=== PATIENT | female | born 1970 | race Caucasian/White ===

== ENCOUNTER 2016-10-07 18:47 | Inpatient (IN) | payer SELFPAY ==
[2016-10-07] MEDS: HEPARIN 5,000 UNITS/ML, 1ML SQ SCH ×2 (08:15→23:55)
[~2016-10-07 18:47] MED LIST: HYDR200T PO; METF500T4 PO; OMEP-110 PO; PRED5TAB25 PO
[2016-10-07] MEDS ORDERED: ACETAMINOPHEN 500 MG TABLET ONE (19:30)
[2016-10-07] MEDS ORDERED: ONDANSETRON 2MG/ML, 2ML ONE (19:30)
[2016-10-07] MEDS ORDERED: HYDROmorphone 1 MG/ML, 1ML ONE ×3 (19:30→23:34)
[2016-10-07] MEDS ORDERED: CEFTRIAXONE PMX 1GM/50ML 50 ML ONE (20:39)
[2016-10-07] MEDS ORDERED: METRONIDAZOLE PMX 500MG/100ML 100 ML ONE (21:10)
[2016-10-07] MEDS ORDERED: SODIUM CHLORIDE 0.9% 1,000 ML IV SCH (22:00)
[2016-10-07] MEDS ORDERED: ACETAMINOPHEN 325 MG TABLET PO PRN (22:00)
[2016-10-07] MEDS ORDERED: CEFTRIAXONE 2 GM in SODIUM CHLORIDE 0.9% 50 ML IVPB SCH (23:00)
[2016-10-07] MEDS ORDERED: MORPHINE SULFATE 4 MG/ML, 1ML ONE (23:16)
[2016-10-07] MEDS ORDERED: HEPARIN 5,000 UNITS/ML, 1ML ONE (23:22)
[2016-10-08 02:50] VITALS: BP 92/63
[2016-10-08] MEDS ORDERED: HYDROmorphone 1 MG/ML, 1ML ONE ×5 (04:05→21:07)
[2016-10-08] MEDS: METRONIDAZOLE PMX 500MG/100ML 100 ML IVPB SCH ×3 (06:00→22:22)
[2016-10-08 07:00] VITALS: BP 126/88
[2016-10-08] MEDS: INSULIN ASPART 100 UNIT/ML SQ-INSULIN SCH ×4 (07:00→21:00)
[2016-10-08] MEDS ORDERED: ONDANSETRON 2MG/ML, 2ML ONE ×2 (07:10→13:10)
[2016-10-08] MEDS: OMEPRAZOLE 20 MG CAPSULE.DR PO SCH (07:30)
[2016-10-08] MEDS: FOLIC ACID 1 MG TABLET PO SCH (09:00)
[2016-10-08] MEDS ORDERED: PROCHLORPERAZINE 5 MG/ML, 2ML IM PRN (16:00)
[2016-10-08] MEDS: HEPARIN 5,000 UNITS/ML, 1ML SQ SCH ×2 (16:00→22:23)
[2016-10-08] MEDS: D5%-0.9% NACL 1,000 ML IV SCH (17:00)
[2016-10-08] MEDS: ONDANSETRON 2MG/ML, 2ML IV PRN (19:26)
[2016-10-08 20:17] VITALS: BP 127/82
[2016-10-08] MEDS ORDERED: HYDROmorphone 2 MG/ML, 1ML IVPush PRN (21:30)
[2016-10-08] MEDS: CEFTRIAXONE PMX 2GM/50ML 50 ML IVPB SCH (23:28)
[2016-10-09] MEDS: D5%-0.9% NACL 1,000 ML IV SCH ×2 (02:57→15:45)
[2016-10-09 03:51] VITALS: BP 124/84
[2016-10-09] MEDS: ONDANSETRON 2MG/ML, 2ML IV PRN ×3 (04:01→23:58)
[2016-10-09] MEDS: HYDROmorphone 1 MG/ML, 1ML IVPush PRN ×5 (04:02→23:58)
[2016-10-09 05:38] LABS: ASPARTATE AMINO TRANSFERASE 17 U/L (15-37); BLOOD UREA NITROGEN 4 mg/dL (7-18)
[2016-10-09] MEDS: METRONIDAZOLE PMX 500MG/100ML 100 ML IVPB SCH ×3 (06:02→23:48)
[2016-10-09] MEDS: HEPARIN 5,000 UNITS/ML, 1ML SQ SCH ×3 (06:02→23:49)
[2016-10-09 07:26] VITALS: BP 126/86
[2016-10-09] MEDS: FOLIC ACID 1 MG TABLET PO SCH (08:06)
[2016-10-09] MEDS: OMEPRAZOLE 20 MG CAPSULE.DR PO SCH (08:06)
[2016-10-09] MEDS: INSULIN ASPART 100 UNIT/ML SQ-INSULIN SCH ×4 (08:06→20:08)
[2016-10-09 12:55] VITALS: BP 128/85
[2016-10-09 13:31] LABS: ASPARTATE AMINO TRANSFERASE 27 U/L (15-37); BLOOD UREA NITROGEN 9 mg/dL (7-18)
[2016-10-09] MEDS: SODIUM CHLORIDE 0.9% 1,000 ML IV SCH (17:23)
[2016-10-09 19:53] VITALS: BP 123/86
[2016-10-10] MEDS: CEFTRIAXONE PMX 2GM/50ML 50 ML IVPB SCH ×2 (01:57→23:31)
[2016-10-10 02:59] VITALS: BP 118/79
[2016-10-10] MEDS: SODIUM CHLORIDE 0.9% 1,000 ML IV SCH ×2 (05:35→13:10)
[2016-10-10] MEDS: HYDROmorphone 1 MG/ML, 1ML IVPush PRN ×5 (05:35→23:31)
[2016-10-10] MEDS: ONDANSETRON 2MG/ML, 2ML IV PRN ×3 (05:44→18:15)
[2016-10-10] MEDS: HEPARIN 5,000 UNITS/ML, 1ML SQ SCH ×3 (05:45→23:31)
[2016-10-10 06:31] LABS: BLOOD UREA NITROGEN 5 mg/dL (7-18)
[2016-10-10] MEDS: INSULIN ASPART 100 UNIT/ML SQ-INSULIN SCH ×4 (07:00→21:00)
[2016-10-10 07:02] VITALS: BP 124/87
[2016-10-10] MEDS: OMEPRAZOLE 20 MG CAPSULE.DR PO SCH (08:51)
[2016-10-10] MEDS: METRONIDAZOLE PMX 500MG/100ML 100 ML IVPB SCH ×2 (08:51→15:58)
[2016-10-10] MEDS: FOLIC ACID 1 MG TABLET PO SCH (08:52)
[2016-10-10 13:26] VITALS: BP 131/83
[2016-10-10 20:29] VITALS: BP 119/83
[2016-10-11] MEDS: ONDANSETRON 2MG/ML, 2ML IV PRN ×4 (00:27→23:09)
[2016-10-11] MEDS: METRONIDAZOLE PMX 500MG/100ML 100 ML IVPB SCH ×4 (00:28→16:00)
[2016-10-11] MEDS: SODIUM CHLORIDE 0.9% 1,000 ML IV SCH ×3 (00:38→16:47)
[2016-10-11 01:17] VITALS: BP 106/73
[2016-10-11] MEDS: HYDROmorphone 1 MG/ML, 1ML IVPush PRN (05:05)
[2016-10-11 05:37] LABS: BLOOD UREA NITROGEN 6 mg/dL (7-18)
[2016-10-11] MEDS: INSULIN ASPART 100 UNIT/ML SQ-INSULIN SCH ×4 (07:00→21:00)
[2016-10-11] MEDS: OMEPRAZOLE 20 MG CAPSULE.DR PO SCH (08:23)
[2016-10-11] MEDS: HEPARIN 5,000 UNITS/ML, 1ML SQ SCH ×3 (08:23→22:33)
[2016-10-11] MEDS: FOLIC ACID 1 MG TABLET PO SCH (08:23)
[2016-10-11] MEDS: HYDROcodone/APAP 10/325 MG TABLET PO PRN ×4 (08:24→22:36)
[2016-10-11 08:25] VITALS: BP 136/88
[2016-10-11 15:30] VITALS: BP 119/81
[2016-10-11 21:06] VITALS: BP 113/78
[2016-10-11] MEDS: CEFTRIAXONE PMX 2GM/50ML 50 ML IVPB SCH (23:09)
[2016-10-12 02:59] VITALS: BP_SYST 111; BP_SYST 131; BP_DIAS 73; BP_DIAS 75
[2016-10-12] MEDS: METRONIDAZOLE PMX 500MG/100ML 100 ML IVPB SCH ×3 (03:59→20:23)
[2016-10-12 05:53] LABS: ASPARTATE AMINO TRANSFERASE 23 U/L (15-37); BLOOD UREA NITROGEN 6 mg/dL (7-18)
[2016-10-12] MEDS: HEPARIN 5,000 UNITS/ML, 1ML SQ SCH ×3 (06:18→22:47)
[2016-10-12] MEDS: SODIUM CHLORIDE 0.9% 1,000 ML IV SCH ×2 (06:18→15:03)
[2016-10-12] MEDS: INSULIN ASPART 100 UNIT/ML SQ-INSULIN SCH ×4 (06:19→21:39)
[2016-10-12] MEDS ORDERED: ERGOCALCIFEROL 50,000 UNIT CAPSULE PO SCH (08:30)
[2016-10-12 08:45] VITALS: BP 138/92
[2016-10-12] MEDS: HYDROcodone/APAP 10/325 MG TABLET PO PRN ×4 (09:31→22:47)
[2016-10-12] MEDS: FOLIC ACID 1 MG TABLET PO SCH (09:33)
[2016-10-12] MEDS: OMEPRAZOLE 20 MG CAPSULE.DR PO SCH (09:33)
[2016-10-12 13:02] VITALS: BP 123/86
[2016-10-12 13:06] LABS: HGB A1C 9.2 %Hb (.)
[2016-10-12] MEDS: ONDANSETRON 2MG/ML, 2ML IV PRN (18:38)
[2016-10-12 20:41] VITALS: BP 109/76
[2016-10-12] MEDS: CEFTRIAXONE PMX 2GM/50ML 50 ML IVPB SCH (22:47)
[2016-10-13] MEDS: SODIUM CHLORIDE 0.9% 1,000 ML IV SCH ×2 (00:26→08:00)
[2016-10-13] MEDS: ONDANSETRON 2MG/ML, 2ML IV PRN ×2 (00:27→06:41)
[2016-10-13 03:20] VITALS: BP 110/72
[2016-10-13] MEDS: METRONIDAZOLE PMX 500MG/100ML 100 ML IVPB SCH (04:06)
[2016-10-13] MEDS: HYDROcodone/APAP 10/325 MG TABLET PO PRN (04:12)
[2016-10-13 05:43] LABS: BLOOD UREA NITROGEN 4 mg/dL (7-18)
[2016-10-13] MEDS: HEPARIN 5,000 UNITS/ML, 1ML SQ SCH (06:41)
[2016-10-13] MEDS: INSULIN ASPART 100 UNIT/ML SQ-INSULIN SCH (07:00)
[2016-10-13 07:06] VITALS: BP 113/77
[2016-10-13] MEDS ORDERED: POTASSIUM CHLORIDE 20 MEQ TAB.ER.PRT PO ONE (09:00)
[2016-10-13] MEDS ORDERED: FOLI-17 PO (09:45)
[2016-10-13] MEDS ORDERED: ERGO500017 PO (09:45)
[2016-10-13] MEDS ORDERED: CIPR500T87 PO (09:46)
[2016-10-13] MEDS ORDERED: METR500T BC (09:47)
[2016-10-13] MEDS: FOLIC ACID 1 MG TABLET PO SCH (10:37)
[2016-10-13] MEDS: OMEPRAZOLE 20 MG CAPSULE.DR PO SCH (10:37)
[2016-10-13 10:42] VITALS: BP 136/97
== END 2016-10-13 10:57 | disposition home or self-care (01) | DRG 871 ==
LOC: ED 18:47 → EDIP 22:00 → 4NOR 10-08 17:06
PROVIDERS: ADMIT Internal Medicine; ATTEND Internal Medicine
DX: A41.9 Sepsis, unspecified organism (principal); E43 Unspecified severe protein-calorie malnutrition; K57.20 Diverticulitis of large intestine with perforation and abscess without bleeding; Z87.442 Personal history of urinary calculi; M06.9 Rheumatoid arthritis, unspecified; K21.9 Gastro-esophageal reflux disease without esophagitis; E11.9 Type 2 diabetes mellitus without complications; E66.9 Obesity, unspecified; Z90.710 Acquired absence of both cervix and uterus; Z90.49 Acquired absence of other specified parts of digestive tract; Z90.5 Acquired absence of kidney; E11.65 Type 2 diabetes mellitus with hyperglycemia; M10.9 Gout, unspecified; Z80.9 Family history of malignant neoplasm, unspecified; D64.9 Anemia, unspecified; E55.9 Vitamin D deficiency, unspecified
CPT/HCPCS: 36415; 74176; 80048; 80053; 81001; 82040; 82306; 82962; 83036; 83605; 83735; 85025; 87040; 87086; 93005; 96365; J0696; J1170; J1644; J1815; J2405; J7042; J0780; J7030; J7512

== ENCOUNTER 2016-11-10 10:35 | Emergency (ER) | payer SELFPAY ==
[~2016-11-10] VITALS: Ht 152.4 cm; Wt 120.0 kg
[~2016-11-10 10:35] MED LIST changes: +CIPR500T87 PO; +ERGO500017 PO; +FOLI-17 PO; +METR500T BC
[2016-11-10 11:13] VITALS: BP 112/82
[2016-11-10] MEDS ORDERED: HYDROcodone/APAP 5/325 TABLET ONE (11:19)
[2016-11-10] MEDS ORDERED: ONDANSETRON ODT 4 MG ONE (11:19)
[2016-11-10] MEDS ORDERED: SODIUM CHLORIDE 0.9% 1,000ML IVBOLUS ONE (11:30)
[2016-11-10] MEDS ORDERED: ONDANSETRON 2MG/ML, 2ML IVPush ONE (11:30)
[2016-11-10] MEDS ORDERED: HYDROcodone/APAP 5/325 TABLET PO ONE (11:30)
[2016-11-10] MEDS ORDERED: ONDANSETRON ODT 4 MG PO ONE (11:30)
[2016-11-10] MEDS ORDERED: HYDROmorphone 1 MG/ML, 1ML IVPush PRN (11:30)
[2016-11-10] MEDS ORDERED: ONDANSETRON 2MG/ML, 2ML ONE (11:52)
[2016-11-10] MEDS ORDERED: HYDROmorphone 1 MG/ML, 1ML ONE (11:53)
[2016-11-10 12:09] LABS: BLOOD UREA NITROGEN 12 mg/dL (7-18)
== END 2016-11-10 12:43 | disposition home or self-care (01) ==
LOC: ED 12:36
DX: M06.9 Rheumatoid arthritis, unspecified (principal); M10.9 Gout, unspecified; M13.0 Polyarthritis, unspecified; E11.9 Type 2 diabetes mellitus without complications; E66.9 Obesity, unspecified; Z68.43 Body mass index [BMI] 50.0-59.9, adult; Z91.14 Patient's other noncompliance with medication regimen; K21.9 Gastro-esophageal reflux disease without esophagitis; I10 Essential (primary) hypertension
CPT/HCPCS: 36415; 73610; 80048; 82040; 84550; 85025; 85651; 86141; 93005; 96361; 96374; 96375; 99285; J1170; J2405; J7030

== ENCOUNTER 2017-01-01 15:51 | Emergency (ER) | payer OTHER ==
[~2017-01-01] VITALS: Ht 152.4 cm; Wt 103.0 kg
[~2017-01-01 15:51] MED LIST changes: +OMEP40CA6 PO; +PRED20TA PO; +[UNRECOGNIZED DRUG - REMARK] PO
[2017-01-01] MEDS ORDERED: SODIUM CHLORIDE FLUSH 10ML SYR IVF ONE (16:30)
[2017-01-01] MEDS ORDERED: SODIUM CHLORIDE 0.9% 1,000ML IVBOLUS ONE (16:30)
[2017-01-01] MEDS ORDERED: ONDANSETRON 2MG/ML, 2ML IVPush ONE (16:30)
[2017-01-01 17:14] LABS: HEMATOCRIT 40.4 % (34.6-47.8); HEMOGLOBIN 12.8 g/dL (11.7-16.4); WHITE BLOOD COUNT 7.7 x10^3/uL (3.4-10)
[2017-01-01] MEDS ORDERED: ONDANSETRON 2MG/ML, 2ML ONE (17:16)
[2017-01-01 17:24] LABS: BLOOD UREA NITROGEN 5 mg/dL (7-18)
[2017-01-01 17:30] LABS: ASPARTATE AMINO TRANSFERASE 39 U/L (15-37)
[2017-01-01] MEDS ORDERED: HYDROmorphone 1 MG/ML, 1ML IV ONE (18:00)
[2017-01-01] MEDS ORDERED: HYDROmorphone 1 MG/ML, 1ML ONE (18:05)
[2017-01-01] MEDS ORDERED: POTASSIUM CHLORIDE 20 MEQ TAB.ER.PRT ONE (19:59)
[2017-01-01] MEDS ORDERED: POTASSIUM CHLORIDE 20 MEQ TAB.ER.PRT PO SCH (20:00)
[2017-01-01 20:07] VITALS: BP 141/87
[2017-01-01] MEDS ORDERED: POTASSIUM CHLORIDE 20 MEQ TAB.ER.PRT PO ONE (20:30)
== END 2017-01-01 20:09 | disposition home or self-care (01) ==
LOC: ED 17:23
DX: R10.13 Epigastric pain (principal); R10.11 Right upper quadrant pain; E87.6 Hypokalemia; E11.65 Type 2 diabetes mellitus with hyperglycemia; I10 Essential (primary) hypertension; K21.9 Gastro-esophageal reflux disease without esophagitis; M06.9 Rheumatoid arthritis, unspecified; Z90.49 Acquired absence of other specified parts of digestive tract; Z90.710 Acquired absence of both cervix and uterus
CPT/HCPCS: 36415; 74022; 80053; 81001; 83690; 84703; 85025; 87086; 96361; 96374; 96375; 99285; J1170; J2405; J7030

== ENCOUNTER 2017-01-02 17:49 | Emergency (ER) | payer OTHER ==
[~2017-01-02] VITALS: Ht 152.4 cm; Wt 107.0 kg
[2017-01-02] MEDS ORDERED: SODIUM CHLORIDE FLUSH 10ML SYR IVF ONE (18:00)
[2017-01-02] MEDS ORDERED: SODIUM CHLORIDE 0.9% 1,000ML IVBOLUS ONE (18:00)
[2017-01-02] MEDS ORDERED: ONDANSETRON 2MG/ML, 2ML IVPush ONE (18:00)
[2017-01-02 18:41] LABS: HEMATOCRIT 38.7 % (34.6-47.8); HEMOGLOBIN 12.4 g/dL (11.7-16.4); WHITE BLOOD COUNT 7.4 x10^3/uL (3.4-10)
[2017-01-02 18:50] LABS: ASPARTATE AMINO TRANSFERASE 46 U/L (15-37); BLOOD UREA NITROGEN 7 mg/dL (7-18)
[2017-01-02] MEDS ORDERED: ONDANSETRON 2MG/ML, 2ML ONE (19:28)
[2017-01-02 19:39] VITALS: BP 100/68
[2017-01-02] MEDS ORDERED: HYDROmorphone 1 MG/ML, 1ML ONE (19:53)
[2017-01-02] MEDS ORDERED: HYDROmorphone 1 MG/ML, 1ML IVPush ONE (20:00)
== END 2017-01-02 20:50 | disposition home or self-care (01) ==
LOC: ED 20:40
DX: R10.84 Generalized abdominal pain (principal); M06.9 Rheumatoid arthritis, unspecified; E11.9 Type 2 diabetes mellitus without complications; K21.9 Gastro-esophageal reflux disease without esophagitis; I10 Essential (primary) hypertension; Z90.49 Acquired absence of other specified parts of digestive tract; Z90.710 Acquired absence of both cervix and uterus; Z91.041 Radiographic dye allergy status; Z88.5 Allergy status to narcotic agent
CPT/HCPCS: 36415; 74176; 80048; 80076; 81001; 82040; 83690; 85025; 87086; 96361; 96374; 96375; 99285; J1170; J2405; J7030

== ENCOUNTER 2017-01-30 18:09 | Emergency (ER) | payer OTHER ==
[~2017-01-30] VITALS: Ht 152.4 cm; Wt 106.8 kg
[2017-01-30 19:00] LABS: HEMATOCRIT 37.6 % (34.6-47.8); HEMOGLOBIN 12.3 g/dL (11.7-16.4)
[2017-01-30] MEDS ORDERED: ONDANSETRON 2MG/ML, 2ML IVPush ONE (19:00)
[2017-01-30] MEDS ORDERED: HYDROmorphone 1 MG/ML, 1ML IVPush PRN (19:00)
[2017-01-30] MEDS ORDERED: SODIUM CHLORIDE FLUSH 10ML SYR IVF ONE (19:00)
[2017-01-30] MEDS ORDERED: SODIUM CHLORIDE 0.9% 1,000ML IVBOLUS ONE (19:00)
[2017-01-30] MEDS ORDERED: ONDANSETRON 2MG/ML, 2ML ONE (19:04)
[2017-01-30] MEDS ORDERED: HYDROmorphone 1 MG/ML, 1ML ONE (19:04)
[2017-01-30 19:09] LABS: BLOOD UREA NITROGEN 6 mg/dL (7-18)
[2017-01-30 19:16] LABS: ASPARTATE AMINO TRANSFERASE 52 U/L (15-37)
[2017-01-30] MEDS ORDERED: DIPHENHYDRAMINE 50 MG/ML, 1ML ONE (21:06)
[2017-01-30] MEDS ORDERED: methylPREDNISolone SOD SUCC 125 MG/2 ML ONE (21:21)
[2017-01-30] MEDS ORDERED: METO-93 PO (21:26)
[2017-01-30] MEDS ORDERED: LEFL20TA16 PO (21:26)
[2017-01-30] MEDS ORDERED: DIPHENHYDRAMINE 50 MG/ML, 1ML IVPush ONE (21:30)
[2017-01-30] MEDS ORDERED: methylPREDNISolone SOD SUCC 125 MG/2 ML IVP ONE (21:30)
[2017-01-30] MEDS ORDERED: OMNIPAQUE 350 MG/ML, 100ML BOTTLE ONE (22:06)
[2017-01-30] MEDS ORDERED: HYDROcodone/APAP 5/325 TABLET ONE (22:42)
[2017-01-30 22:47] VITALS: BP 105/72
[2017-01-30] MEDS ORDERED: HYDROcodone/APAP 5/325 TABLET PO ONE (23:00)
== END 2017-01-30 22:49 | disposition home or self-care (01) ==
LOC: ED 21:02
DX: K57.32 Diverticulitis of large intestine without perforation or abscess without bleeding (principal); N30.01 Acute cystitis with hematuria; R11.2 Nausea with vomiting, unspecified; E11.9 Type 2 diabetes mellitus without complications; R19.7 Diarrhea, unspecified; Z90.49 Acquired absence of other specified parts of digestive tract
CPT/HCPCS: 36415; 74177; 80053; 81001; 83690; 84703; 85025; 87077; 87086; 87186; 87324; 89055; 96361; 96374; 96375; 99285; J1170; J1200; J2405; J2930; J7030; Q9967

== ENCOUNTER 2017-02-03 15:57 | Emergency (ER) | payer SELFPAY ==
[~2017-02-03] VITALS: Ht 152.4 cm; Wt 102.3 kg
[~2017-02-03 15:57] MED LIST changes: +LEFL20TA16 PO; +METO-93 PO
[2017-02-03] MEDS ORDERED: SODIUM CHLORIDE 0.9% 1,000ML IVBOLUS ONE (16:30)
[2017-02-03] MEDS ORDERED: SODIUM CHLORIDE FLUSH 10ML SYR IVF ONE (16:30)
[2017-02-03] MEDS ORDERED: CIPR500T87 PO (16:43)
[2017-02-03] MEDS ORDERED: METR500T PO (16:44)
[2017-02-03 16:48] LABS: HEMATOCRIT 37.7 % (34.6-47.8); HEMOGLOBIN 12.2 g/dL (11.7-16.4); WHITE BLOOD COUNT 6.5 x10^3/uL (3.4-10)
[2017-02-03 16:53] LABS: ASPARTATE AMINO TRANSFERASE 61 U/L (15-37); BLOOD UREA NITROGEN 3 mg/dL (7-18)
[2017-02-03 16:58] LABS: IS PT STATUS REG ER OR PRE ER? YES
[2017-02-03] MEDS ORDERED: POTASSIUM CHLORIDE 10% 40 MEQ/30 ML UDC PO ONE (17:00)
[2017-02-03 17:03] LABS: ANISOCYTOSIS 1+; HYPOCHROMIA 1+; MICROCYTOSIS 1+; POLYCHROMASIA 1+
[2017-02-03] MEDS ORDERED: POTASSIUM CHLORIDE 10% 20 MEQ/15 ML UDC ONE (17:12)
[2017-02-03 17:19] LABS: PATH.CAST-FLAG NOT PRESENT; SPERM-FLAG NOT PRESENT; SRC-FLAG NOT PRESENT; XTAL-FLAG NOT PRESENT; YLC-FLAG NOT PRESENT
[2017-02-03 17:43] VITALS: BP 111/77
== END 2017-02-03 17:57 | disposition home or self-care (01) ==
LOC: ED 17:17
DX: R00.0 Tachycardia, unspecified (principal); R20.2 Paresthesia of skin; E87.6 Hypokalemia; E83.51 Hypocalcemia; I10 Essential (primary) hypertension; M10.9 Gout, unspecified; E11.9 Type 2 diabetes mellitus without complications; E66.9 Obesity, unspecified; Z86.718 Personal history of other venous thrombosis and embolism
CPT/HCPCS: 36415; 70450; 71010; 80053; 81001; 82962; 84484; 85025; 85610; 87086; 93005; 96360; 99285; J7030

== ENCOUNTER 2017-12-08 19:56 | Emergency (ER) | payer SELFPAY ==
[~2017-12-08] VITALS: Ht 152.4 cm; Wt 81.1 kg
[~2017-12-08 19:56] MED LIST changes: -HYDR200T PO; +HYDR200T72 PO; -METF500T4 PO; +METF500T5 PO; +METR500T PO
[2017-12-08 20:08] VITALS: BP 121/78
[2017-12-08] MEDS ORDERED: OXYcodone/APAP 5/325MG TABLET PO ONE (20:30)
[2017-12-08] MEDS ORDERED: KETOROLAC 30 MG/1 ML IM ONE (20:30)
[2017-12-08] MEDS ORDERED: OXYcodone/APAP 5/325MG TABLET ONE (20:33)
[2017-12-08] MEDS ORDERED: KETOROLAC 30 MG/1 ML ONE (20:33)
== END 2017-12-08 22:21 | disposition home or self-care (01) ==
LOC: ED 22:00
DX: M25.511 Pain in right shoulder (principal); M19.90 Unspecified osteoarthritis, unspecified site; M10.9 Gout, unspecified; M06.9 Rheumatoid arthritis, unspecified; I10 Essential (primary) hypertension; E11.9 Type 2 diabetes mellitus without complications; M54.2 Cervicalgia; Z91.041 Radiographic dye allergy status; Z88.5 Allergy status to narcotic agent; Z87.442 Personal history of urinary calculi
CPT/HCPCS: 73030; 96372; 99284; J1885

== ENCOUNTER 2018-02-06 15:48 | Emergency (ER) | payer SELFPAY ==
[~2018-02-06] VITALS: Ht 152.4 cm; Wt 81.0 kg
[~2018-02-06 15:48] MED LIST changes: +METF500T17 PO; -METF500T5 PO
[2018-02-06 16:04] VITALS: BP 95/65
== END 2018-02-06 18:01 | disposition home or self-care (01) ==
LOC: ED 17:55
DX: M71.22 Synovial cyst of popliteal space [Baker], left knee (principal); E11.9 Type 2 diabetes mellitus without complications; M06.9 Rheumatoid arthritis, unspecified
CPT/HCPCS: 99284